=== PATIENT | male | born 1965 | race Hispanic/Latino ===

== ENCOUNTER 2023-06-12 13:46 | Emergency (ER) | payer SELFPAY ==
[2023-06-12 16:09] LABS: #Basophils 0.1 10x3/uL (0.0-0.2); #Eosinphils 0.2 10x3/uL (0.0-0.5); #Monocytes 0.7 10x3/uL (0.0-1.1); #Neutrophils 7.6 10x3/uL (1.5-8.4); %Basophils 0.7 % (0.0-2.0); %Eosinophils 2.2 % (0.0-6.0); %Lymphocytes 16.1 % (18.0-47.0); %Neutrophils 73.6 % (40.0-75.0); Hematocrit 41.9 % (38.8-50.0); Hemoglobin 13.8 g/dL (13.5-17.5); Mean Corpuscular HGB CONC 32.9 g/dL (32.0-36.0); Mean Corpuscular Hemoglobin 28.6 pg (27.0-33.0); Mean Corpuscular Volume 86.7 fl (81.2-95.1); Mean Platelet Volume 8.3 fl (7.4-10.4); Platelet Count 583 10x3/uL (150-450); RBC Distribution Width 14.7 % (11.5-14.5); Red Blood Cell (RBC) Count 4.83 10x6/uL (4.32-5.72); White Blood Cell (WBC) Count 10.3 10x3/uL (3.5-10.5)
[2023-06-12 16:14] LABS: Bilirubin Neg (Negative); Blood, Urine Negative (Negative); Glucose, Urine (Dipstick) Normal (Negative); Ketone, Urine Negative (Negative); Leukocyte 25 (Negative); Nitrite Negative (Negative); Protein, Urine (Dipstick) 15 mg/dl (Neg-Trace); Specific Gravity, Urine 1.015 (1.005-1.030); Urobilinogen Normal mg/dL (Less than 2)
[2023-06-12 16:25] LABS: Clarity Hazy (Clear)
[2023-06-12 16:30] LABS: Bacteria/HPF 3+ HPF (None Seen); CAUTI Indications for Culture Pelvic or flank pain; RBC/HPF 0-3 HPF (0-3); Squamous Epithelial 0-3 HPF (0-3); Transitional Epithelial 0-3 HPF (None Seen)
[2023-06-12 16:32] LABS: Urine Culture Reflex No No
[2023-06-12 16:44] LABS: ALT (SGPT) 30 U/L (8-55); AST (SGOT) 28 U/L (5-34); Albumin 4.1 g/dL (3.5-5.0); Alkaline Phosphatase 124 U/L (40-110); Anion Gap 14 mmol/L (10-20); BUN (Urea Nitrogen) 23 mg/dL (8.4-25.7); Bilirubin, Total 0.2 mg/dL (0.2-1.2); CK (CPK) 193 U/L (30-200); Calc. Creatinine Clearance 0 mL/min (70-130); Calcium 9.7 mg/dL (7.8-10.44); Carbon Dioxide 25 mmol/L (22-29); Estimated GFR 96; Globulin 3.6 g/dL (2.4-3.5); Glucose 109 mg/dL (70-105); Lipase 39 U/L (8-78); Potassium 4.8 mmol/L (3.5-5.1); Protein, Total 7.7 g/dL (6.0-8.3)
[2023-06-12 16:54] LABS: Chloride 106 mmol/L (98-107); Sodium 140 mmol/L (136-145)
== END 2023-06-12 17:25 | disposition home or self-care (01) ==
LOC: CSHERS 13:46
DX: N39.0 Urinary tract infection, site not specified (principal); F17.210 Nicotine dependence, cigarettes, uncomplicated
CPT/HCPCS: 36415; 80053; 81001; 82550; 83690; 85025; 99283

== ENCOUNTER 2023-10-03 14:16 | Outpatient (CLI) | payer OTHER | END 2023-10-03 14:17 | disposition home or self-care (01) | LOC: CSHWCC 14:16 | PROVIDERS: ATTEND Nurse Practitioner Family | DX: L89.150 Pressure ulcer of sacral region, unstageable (principal); L89.324 Pressure ulcer of left buttock, stage 4; L89.313 Pressure ulcer of right buttock, stage 3; M86.60 Other chronic osteomyelitis, unspecified site ==

== ENCOUNTER 2023-10-05 11:48 | Outpatient (CLI) | payer OTHER | END 2023-10-05 11:49 | disposition home or self-care (01) | LOC: CSHWCC 11:48 | PROVIDERS: ATTEND Nurse Practitioner Family | DX: L89.314 Pressure ulcer of right buttock, stage 4 (principal); L89.323 Pressure ulcer of left buttock, stage 3; L89.150 Pressure ulcer of sacral region, unstageable; M86.60 Other chronic osteomyelitis, unspecified site | CPT/HCPCS: 97606 ==

== ENCOUNTER 2023-10-09 14:06 | Outpatient (CLI) | payer OTHER | END 2023-10-09 14:07 | disposition home or self-care (01) | LOC: CSHWCC 14:06 | PROVIDERS: ATTEND Nurse Practitioner Family | DX: L89.153 Pressure ulcer of sacral region, stage 3 (principal); L89.314 Pressure ulcer of right buttock, stage 4; L89.323 Pressure ulcer of left buttock, stage 3; M86.60 Other chronic osteomyelitis, unspecified site | CPT/HCPCS: 11042; 11045; 87070; 87205 ==

== ENCOUNTER 2023-11-01 08:43 | Outpatient (CLI) | payer OTHER | END 2023-11-01 08:44 | disposition home or self-care (01) | LOC: CSHWCC 08:43 | PROVIDERS: ATTEND Nurse Practitioner Family | DX: L89.314 Pressure ulcer of right buttock, stage 4 (principal); L89.323 Pressure ulcer of left buttock, stage 3; M86.60 Other chronic osteomyelitis, unspecified site | CPT/HCPCS: 97606 ==

== ENCOUNTER 2023-11-05 10:42 | Outpatient (CLI) | payer OTHER | END 2023-11-05 10:43 | disposition home or self-care (01) | LOC: CSHWCC 10:42 | PROVIDERS: ATTEND Nurse Practitioner Family | DX: L89.314 Pressure ulcer of right buttock, stage 4 (principal); L89.324 Pressure ulcer of left buttock, stage 4; M86.60 Other chronic osteomyelitis, unspecified site | CPT/HCPCS: 11042; 11043; 11045; 11046; 97606 ==

== ENCOUNTER 2023-11-08 11:41 | Outpatient (CLI) | payer OTHER | END 2023-11-08 11:42 | disposition home or self-care (01) | LOC: CSHWCC 11:41 | PROVIDERS: ATTEND Nurse Practitioner Family | DX: L89.314 Pressure ulcer of right buttock, stage 4 (principal); L89.324 Pressure ulcer of left buttock, stage 4; M86.60 Other chronic osteomyelitis, unspecified site | CPT/HCPCS: 97606 ==

== ENCOUNTER 2023-11-12 09:54 | Outpatient (CLI) | payer OTHER | END 2023-11-12 09:55 | disposition home or self-care (01) | LOC: CSHWCC 09:54 | PROVIDERS: ATTEND Nurse Practitioner Family | DX: L89.314 Pressure ulcer of right buttock, stage 4 (principal); L89.324 Pressure ulcer of left buttock, stage 4; M86.60 Other chronic osteomyelitis, unspecified site | CPT/HCPCS: 97606 ==

== ENCOUNTER 2023-11-15 11:40 | Outpatient (CLI) | payer OTHER | END 2023-11-15 11:41 | disposition home or self-care (01) | LOC: CSHWCC 11:40 | PROVIDERS: ATTEND Preventive Medicine Undersea and Hyperbaric Medicine | DX: L89.314 Pressure ulcer of right buttock, stage 4 (principal); L89.324 Pressure ulcer of left buttock, stage 4; M86.60 Other chronic osteomyelitis, unspecified site | CPT/HCPCS: 11043; 11046; 97606 ==

== ENCOUNTER 2023-11-19 15:35 | Outpatient (CLI) | payer OTHER | END 2023-11-19 15:36 | disposition home or self-care (01) | LOC: CSHWCC 15:35 | PROVIDERS: ATTEND Preventive Medicine Undersea and Hyperbaric Medicine | DX: L89.314 Pressure ulcer of right buttock, stage 4 (principal); L89.324 Pressure ulcer of left buttock, stage 4; M86.60 Other chronic osteomyelitis, unspecified site | CPT/HCPCS: 97606 ==

== ENCOUNTER 2023-11-22 11:38 | Outpatient (CLI) | payer OTHER | END 2023-11-22 11:39 | disposition home or self-care (01) | LOC: CSHWCC 11:38 | PROVIDERS: ATTEND Nurse Practitioner Family | DX: L89.314 Pressure ulcer of right buttock, stage 4 (principal); L89.324 Pressure ulcer of left buttock, stage 4; M86.60 Other chronic osteomyelitis, unspecified site | CPT/HCPCS: 11042; 11045; 97606 ==

== ENCOUNTER 2023-11-27 15:43 | Outpatient (CLI) | payer OTHER | END 2023-11-27 15:44 | disposition home or self-care (01) | LOC: CSHWCC 15:43 | PROVIDERS: ATTEND Nurse Practitioner Family | DX: L89.314 Pressure ulcer of right buttock, stage 4 (principal); L89.324 Pressure ulcer of left buttock, stage 4; M86.60 Other chronic osteomyelitis, unspecified site ==

== ENCOUNTER 2023-12-03 11:10 | Outpatient (CLI) | payer OTHER | END 2023-12-03 11:11 | disposition home or self-care (01) | LOC: CSHWCC 11:10 | PROVIDERS: ATTEND Nurse Practitioner Family | DX: L89.314 Pressure ulcer of right buttock, stage 4 (principal); L89.324 Pressure ulcer of left buttock, stage 4; M86.60 Other chronic osteomyelitis, unspecified site ==

== ENCOUNTER 2023-12-07 15:35 | Outpatient (CLI) | payer OTHER | END 2023-12-07 15:36 | disposition home or self-care (01) | LOC: CSHWCC 15:35 | PROVIDERS: ATTEND Nurse Practitioner Family | DX: L89.314 Pressure ulcer of right buttock, stage 4 (principal); L89.324 Pressure ulcer of left buttock, stage 4; M86.60 Other chronic osteomyelitis, unspecified site | CPT/HCPCS: 97605 ==

== ENCOUNTER 2023-12-11 13:58 | Outpatient (CLI) | payer OTHER | END 2023-12-11 13:59 | disposition home or self-care (01) | LOC: CSHWCC 13:58 | PROVIDERS: ATTEND Nurse Practitioner Family | DX: L89.314 Pressure ulcer of right buttock, stage 4 (principal); L89.324 Pressure ulcer of left buttock, stage 4; M86.60 Other chronic osteomyelitis, unspecified site | CPT/HCPCS: 11042; 11045 ==

== ENCOUNTER 2023-12-14 15:48 | Outpatient (CLI) | payer OTHER | END 2023-12-14 15:49 | disposition home or self-care (01) | LOC: CSHWCC 15:48 | PROVIDERS: ATTEND Nurse Practitioner Family | DX: L89.314 Pressure ulcer of right buttock, stage 4 (principal); L89.324 Pressure ulcer of left buttock, stage 4; M86.60 Other chronic osteomyelitis, unspecified site | CPT/HCPCS: 97605 ==

== ENCOUNTER 2023-12-18 15:03 | Outpatient (CLI) | payer OTHER | END 2023-12-18 15:04 | disposition home or self-care (01) | LOC: CSHWCC 15:03 | PROVIDERS: ATTEND Nurse Practitioner Family | DX: L89.314 Pressure ulcer of right buttock, stage 4 (principal); L89.324 Pressure ulcer of left buttock, stage 4; M86.60 Other chronic osteomyelitis, unspecified site | CPT/HCPCS: 11042; 11045 ==

== ENCOUNTER 2023-12-21 15:33 | Outpatient (CLI) | payer OTHER | END 2023-12-21 15:34 | disposition home or self-care (01) | LOC: CSHWCC 15:33 | PROVIDERS: ATTEND Nurse Practitioner Family | DX: L89.314 Pressure ulcer of right buttock, stage 4 (principal); L89.324 Pressure ulcer of left buttock, stage 4; M86.60 Other chronic osteomyelitis, unspecified site | CPT/HCPCS: 97605 ==

== ENCOUNTER 2024-01-18 15:40 | Outpatient (CLI) | payer OTHER | END 2024-01-18 15:41 | disposition home or self-care (01) | LOC: CSHWCC 15:40 | PROVIDERS: ATTEND Nurse Practitioner Family | DX: L89.314 Pressure ulcer of right buttock, stage 4 (principal); L89.324 Pressure ulcer of left buttock, stage 4; M86.60 Other chronic osteomyelitis, unspecified site | CPT/HCPCS: 11042; 11045 ==

== ENCOUNTER 2024-03-03 08:30 | Outpatient (CLI) | payer OTHER | END 2024-03-03 08:31 | LOC: CSHWCC 08:30 | PROVIDERS: ATTEND Nurse Practitioner Family | DX: L89.314 Pressure ulcer of right buttock, stage 4 (principal); L89.324 Pressure ulcer of left buttock, stage 4; M86.60 Other chronic osteomyelitis, unspecified site | CPT/HCPCS: 11042; 11045 ==

== ENCOUNTER 2024-03-12 09:04 | Outpatient (CLI) | payer OTHER | END 2024-03-12 09:05 | disposition home or self-care (01) | LOC: CSHWCC 09:04 | PROVIDERS: ATTEND Nurse Practitioner Family | DX: L89.314 Pressure ulcer of right buttock, stage 4 (principal); L89.324 Pressure ulcer of left buttock, stage 4; M86.60 Other chronic osteomyelitis, unspecified site | CPT/HCPCS: 11042 ==

== ENCOUNTER 2024-04-02 15:29 | Outpatient (CLI) | payer OTHER | END 2024-04-02 15:30 | disposition home or self-care (01) | LOC: CSHWCC 15:29 | PROVIDERS: ATTEND Nurse Practitioner Family | DX: L89.314 Pressure ulcer of right buttock, stage 4 (principal); L89.324 Pressure ulcer of left buttock, stage 4; M86.60 Other chronic osteomyelitis, unspecified site | CPT/HCPCS: 11042 ==

== ENCOUNTER 2024-05-31 17:29 | Emergency (ER) | payer OTHER | END 2024-05-31 18:53 | disposition home or self-care (01) | LOC: CSHERS 17:29 | DX: T83.098A Other mechanical complication of other urinary catheter, initial encounter (principal); F17.210 Nicotine dependence, cigarettes, uncomplicated | CPT/HCPCS: 99283 ==